=== PATIENT | female | born 1990 | race African-American/Black ===

== ENCOUNTER 2024-10-16 16:11 | Emergency (ER) | payer MEDICAID ==
[~2024-10-16] VITALS: Ht 167.6 cm; Wt 100.0 kg
[2024-10-16 16:14] VITALS: O2SAT 98
[2024-10-16 17:01] LABS: BASOPHILS % 1.2 % (0.0-2.0); EOSINOPHILS % 1.5 % (0.0-5.0); HEMATOCRIT. 36.3 % (36.0-48.0); LYMPHOCYTES % 29.7 % (20.0-50.0); MEAN CORPUSCULAR HEMOGLOBIN 28.4 pg (28.0-32.0); MEAN CORPUSCULAR HGB CONC 33.1 g/dL (31.0-37.0); MEAN CORPUSCULAR VOLUME 85.8 fL (81.0-99.0); MEAN PLATELET VOLUME 8.2 fl (7.4-10.4); MONOCYTES % 4.9 % (2.0-8.0); NEUTROPHILS % 62.7 % (40.0-76.0); PLATELET 283 x1000/uL (130-400); RED BLOOD CELL COUNT 4.23 mill/uL (4.2-5.4); RED CELL DISTRIBUTION WIDTH 14.2 % (11.6-14.6); WHITE BLOOD COUNT 6.2 x1000/uL (4.5-11.0)
[2024-10-16 17:02] LABS: CHLORIDE 110 mEq/L (98-107); POTASSIUM 3.8 mEq/L (3.5-5.1); SODIUM 142 mEq/L (136-145)
[2024-10-16 17:03] LABS: CALCIUM 8.7 mg/dL (8.7-10.4); CARBON DIOXIDE 22 mEq/L (21-32)
[2024-10-16 17:08] LABS: CREATININE 0.9 mg/dL (0.6-1.0); GLUCOSE 101 mg/dL (70-105); UREA NITROGEN BLOOD 11 mg/dL (9-23)
[2024-10-16 17:11] LABS: PHOSPHORUS 3.2 mg/dL (2.5-4.9)
[2024-10-16 17:14] LABS: T4 FREE 1.27 ng/dL (0.89-1.76); THYROID STIMULATING HORMONE 2.08 uIU/mL (0.55-4.78)
[2024-10-16 19:30] VITALS: BP 137/84; PULSE 81; RESP 13; TEMP 36.6; O2SAT 98
== END 2024-10-16 20:08 | disposition home or self-care (01) ==
LOC: ER 16:11
DX: I47.10 Supraventricular tachycardia, unspecified (principal); Z86.718 Personal history of other venous thrombosis and embolism
CPT/HCPCS: 80048; 84439; 83735; 84100; 84443; 85025; 36415; 99283; Z7610